=== PATIENT | female | born 1980 | race Caucasian/White ===

== ENCOUNTER 2019-01-15 11:40 | Emergency (ER) | payer OTHER ==
[2019-01-15] MEDS ORDERED: ACETAMINOPHEN 325 MG TABLET PO ONE (12:20)
--- NOTE | 2019-01-15 12:23 | ER Document Report ---
ED Medical Screen (RME) - General Chief Complaint: Passed Out Prior to Arrival Stated Complaint: POSSIBLE SYNCOPE Time Seen by Provider: 01/15/19 12:14 Mode of Arrival: Ambulatory Information source: Patient TRAVEL OUTSIDE OF THE [place] IN LAST 30 DAYS: No - HPI Patient complains to provider of: syncope Notes: 01/15/19 12:21 Patient is here with complaints of syncopal episode. The patient states she woke up feeling fine this morning. She was at work and started feeling like she was going to pass out. She apparently had a brief syncopal episode. She states that her coworkers said that she seemed to have full body shaking during this episode. Patient states when she woke up she was out of it and groggy for several minutes. She denies any loss of bowel or bladder. She denies any history of seizures. No chest pain or shortness of breath. She now complains of left-sided headache. She states that she was having some blurred vision in her left eye, this seems to be better. She denies any unilateral numbness, tingling, weakness. No fever. No injury. She does smoke marijuana. She denies any other specific complaints at this time. Exam Nontoxic, no distress. Lungs clear and equal. Heart sounds normal. Nonfocal neurological exam. Plan CBC, CMP, troponin, EKG, chest x-ray, head CT, Tylenol. An initial examination was made on the patient as part of the triage process, and it was determined a more comprehensive evaluation was necessary. Initial labs were ordered and patient was transferred to another provider in the ED who assumed care and finished evaluation and plan. - Related Data Allergies/Adverse Reactions: No Known Allergies Allergy (Verified 01/15/19 11:42) Past Medical History - Social History Chew tobacco use (# tins/day): No Frequency of alcohol use: Social Drug Abuse: Marijuana Renal/ Medical History: Denies: Hx Peritoneal Dialysis Physical Exam - Vital signs Vitals: Temp Pulse Resp BP Pulse Ox 97.5 F 74 14 119/69 99 01/15/19 11:47 01/15/19 11:47 01/15/19 11:47 01/15/19 11:47 01/15/19 11:47 Course - Vital Signs Vital signs: Temp Pulse Resp BP Pulse Ox 97.5 F 74 14 119/69 99 01/15/19 11:47 01/15/19 11:47 01/15/19 11:47 01/15/19 11:47 01/15/19 11:47
--- NOTE | 2019-01-15 12:47 | RADIOLOGY REPORT (SQ) ---
EXAM DESCRIPTION: CHEST 2 VIEWS COMPLETED DATE/TIME: 01/15/2019 12:35 pm REASON FOR STUDY: syncope COMPARISON: None. EXAM PARAMETERS: NUMBER OF VIEWS: two views TECHNIQUE: Digital Frontal and Lateral radiographic views of the chest acquired. RADIATION DOSE: NA LIMITATIONS: none FINDINGS: LUNGS AND PLEURA: No opacities, masses or pneumothorax. No pleural effusion. MEDIASTINUM AND HILAR STRUCTURES: No masses or contour abnormalities. HEART AND VASCULAR STRUCTURES: Heart normal size. No evidence for failure. BONES: Old healed right lateral rib fractures HARDWARE: None in the chest. OTHER: No other significant finding. IMPRESSION: NO ACUTE RADIOGRAPHIC FINDING IN THE CHEST. TECHNICAL DOCUMENTATION: JOB ID: [id number] [employer]- All Rights Reserved Reading location - IP/workstation name: [email or web address]
--- NOTE | 2019-01-15 13:00 | RADIOLOGY REPORT (SQ) ---
EXAM DESCRIPTION: CT HEAD WITHOUT COMPLETED DATE/TIME: 01/15/2019 12:44 pm REASON FOR STUDY: syncope, ? seizure, blurred vision, headache COMPARISON: None. TECHNIQUE: Axial images acquired through the brain without intravenous contrast. Images reviewed wi th bone, brain and subdural windows. Additional sagittal and coronal reconstructions were generated. Images stored on PACS. All CT scanners at this facility use dose modulation, iterative reconstruction, and/or weight based d osing when appropriate to reduce radiation dose to as low as reasonably achievable (ALARA). [facility]: Dose Right [facility]: CareDose [facility]: Dose Right [facility]: Teradose 4D [facility]: Perception Software RADIATION DOSE: CT Rad equipment meets quality standard of care and radiation dose reduction techniq ues were employed. CTDIvol: 53.2 mGy. DLP: 1070 mGy-cm. mGy. LIMITATIONS: None. FINDINGS: VENTRICLES: Normal size and contour. CEREBRUM: No masses. No hemorrhage. No midline shift. No evidence for acute infarction. Normal gra y/white matter differentiation. No areas of low density in the white matter. CEREBELLUM: There is a questionable low-density lesion seen in the salvatore on sagittal imaging. No defi nitive mass effect. EXTRAAXIAL SPACES: No fluid collections. No masses. ORBITS AND GLOBE: No intra- or extraconal masses. Normal contour of globe without masses. CALVARIUM: No fracture. PARANASAL SINUSES: No fluid or mucosal thickening. SOFT TISSUES: No mass or hematoma. OTHER: No other significant finding. IMPRESSION: Questionable low-density lesion/mass in the salvatore. EVIDENCE OF ACUTE STROKE: NO. COMMENT: Recommend MRI with contrast for further evaluation. Quality ID # [id number]: Final reports with documentation of one or more dose reduction techniques (e.g., Au tomated exposure control, adjustment of the mA and/or kV according to patient size, use of iterative reconstruction technique) TECHNICAL DOCUMENTATION: JOB ID: [id number] [employer]- All Rights Reserved Reading location - IP/workstation name: [email or web address]
[2019-01-15 13:38] LABS: ABSOLUTE LYMPHOCYTES (AUTO) 2.3 10^3/uL (0.5-4.7); ABSOLUTE MONOCYTES (AUTO) 0.7 10^3/uL (0.1-1.4); ABSOLUTE NEUT (AUTO) 8.4 10^3/uL (1.7-8.2); BASOPHILS % (AUTO) 0.4 % (0-2); HEMATOCRIT 41.4 % (36.0-47.0); HEMOGLOBIN 14.5 g/dL (12.0-15.5); LYMPHOCYTES % (AUTO) 20.4 % (13-45); MEAN CORPUSCULAR HEMOGLOBIN 34.4 pg (27.0-33.4); MEAN CORPUSCULAR VOLUME 99 fl (80-97); MONOCYTES % (AUTO) 5.9 % (3-13); PLATELET COUNT 345 10^3/uL (150-450); RED BLOOD COUNT 4.21 10^6/uL (3.72-5.28); RED CELL DISTRIBUTION WIDTH 12.8 % (11.5-14.0); SEGMENTED NEUTROPHILS % (AUTO) 73.3 % (42-78); TOTAL CELLS COUNTED % (AUTO) 100 %; WHITE BLOOD COUNT 11.4 10^3/uL (4.0-10.5)
[2019-01-15 13:47] LABS: APPEARANCE,URINE CLEAR; BILIRUBIN,URINE NEGATIVE (NEGATIVE); COLOR,URINE YELLOW; GLUCOSE, URINE NEGATIVE (NEGATIVE); KETONES,URINE NEGATIVE (NEGATIVE); LEUKOCYTE ESTERASE,URINE NEGATIVE (NEGATIVE); NITRITE,URINE NEGATIVE (NEGATIVE); PROTEIN,URINE NEGATIVE (NEGATIVE); UROBILINOGEN,URINE NEGATIVE mg/dL (<2.0)
[2019-01-15 13:58] LABS: ALANINE AMINOTRANSFERASE 22 U/L (9-52); ALBUMIN 4.6 g/dL (3.5-5.0); ALKALINE PHOSPHATASE 69 U/L (38-126); ANION GAP 11 (5-19); ASPARTATE AMINO TRANSFERASE 20 U/L (14-36); BILIRUBIN,DIRECT 0.3 mg/dL (0.0-0.4); BILIRUBIN,TOTAL 0.4 mg/dL (0.2-1.3); BLOOD UREA NITROGEN 15 mg/dL (7-20); CALCIUM 9.8 mg/dL (8.4-10.2); CARBON DIOXIDE 25 mmol/L (22-30); CHLORIDE 101 mmol/L (98-107); GLUCOSE 88 mg/dL (75-110); POTASSIUM 4.6 mmol/L (3.6-5.0); SODIUM 136.9 mmol/L (137-145); TOTAL PROTEIN 7.7 g/dL (6.3-8.2)
[2019-01-15] MEDS ORDERED: THIAMINE HCL 100 MG, FOLIC ACID 1 MG in NORMAL SALINE 250 ML IV ONE (15:08)
--- NOTE | 2019-01-15 15:17 | ER Document Report ---
ED General - General Chief Complaint: Passed Out Prior to Arrival Stated Complaint: POSSIBLE SYNCOPE Time Seen by Provider: 01/15/19 12:14 Mode of Arrival: Ambulatory TRAVEL OUTSIDE OF THE [place] IN LAST 30 DAYS: No - HPI Notes: Patient is a 38-year-old female that presents to the emergency department for chief complaint of vision changes and seizure. Patient reports when she woke up this morning she was having hard time seeing out of her left eye. If she would close her left eye her vision normalized. She described it as a blurry brightness. The blurred vision lasted for about an hour or 2 and has since resolved. Patient states she went to work afterwards and was "just not feeling well". She states she sat down on a bench and then had a seizure. She does not remember the seizure or any prodromal symptoms. Her boss found her and reported that she had facial twitching as well as shaking of her upper and lower extremities. It is unknown how long the seizure-like activity lasted. When patient woke up she was groggy but felt like she knew where she was. She states her mother has a history of seizures but she has never had a seizure. She does report a mild headache behind her left eye that has been ongoing throughout today. The headache was gradual in onset and is currently improved. She has not taken any medication at home for her headache yet today. Patient denies any numbness or weakness. She states she is now feeling much better. Past Medical History: Negative Past Surgical History: Tonsillectomy, chest tube Social History: Drinks at least 6 beers daily, daily tobacco, daily marijuana Family History: Reviewed and noncontributory for presenting illness Allergies: Reviewed, see documented allergy list. REVIEW OF SYSTEMS: CONSTITUTIONAL : No fever No chills No diaphoresis No recent illness EENT: vision changes No congestion No sore throat CARDIOVASCULAR: No chest pain No palpitations RESPIRATORY: No shortness of breath No cough No difficulty breathing GASTROINTESTINAL: No abdominal pain No nausea No vomiting No diarrhea GENITOURINARY: No dysuria No hematuria No difficulty urinating MUSCULOSKELETAL: No back pain No leg pain No arm pain SKIN: No rashes No lesions LYMPHATIC: No swollen, enlarged glands. NEUROLOGICAL: No lightheadedness Seizure headache No weakness No paresthesias PSYCHIATRIC: No anxiety No depression PHYSICAL EXAMINATION: Vital signs reviewed, nursing noted reviewed. GENERAL: Well-appearing, well-nourished and in no acute distress. HEAD: Atraumatic, normocephalic. EYES: Eyes appear normal, extraocular movements intact, sclera anicteric, conjunctiva are normal. ENT: nares patent, oropharynx clear without exudates. Moist mucous membranes. NECK: Normal range of motion, supple without lymphadenopathy LUNGS: Breath sounds clear to auscultation bilaterally and equal. No wheezes rales or rhonchi. HEART: Regular rate and rhythm without murmurs ABDOMEN: Soft, nontender, normoactive bowel sounds. No rebound, guarding, or rigidity. No masses appreciated. EXTREMITIES: Nontender, good range of motion, no pitting or edema. NEUROLOGICAL: No focal neurological deficits. Moves all extremities spontaneously Motor and sensory grossly intact on exam. PSYCH: Normal mood, normal affect. SKIN: Warm, Dry, normal turgor, no rashes or lesions noted on exposed skin - Related Data Allergies/Adverse Reactions: No Known Allergies Allergy (Verified 01/15/19 11:42) Past Medical History - General Information source: Patient - Social History Smoking Status: Current Every Day Smoker Chew tobacco use (# tins/day): No Frequency of alcohol use: Social Drug Abuse: Marijuana Family History: Other - Mother has seizures Patient has suicidal ideation: No Patient has homicidal ideation: No Renal/ Medical History: Denies: Hx Peritoneal Dialysis Physical Exam - Vital signs Vitals: Temp Pulse Resp BP Pulse Ox 97.5 F 74 14 119/69 99 01/15/19 11:47 01/15/19 11:47 01/15/19 11:47 01/15/19 11:47 01/15/19 11:47 Course - Re-evaluation Re-evalutation: 01/15/19 15:16 Vitals reviewed. Nursing notes reviewed. Patient is currently hemodynamically stable with no focal neurologic deficits. Seizure precautions were started. Patient has unremarkable blood work including normal electrolytes and renal function. She has no signs of anemia. Patient's EKG shows no acute ischemic changes. Her CT brain shows a density or mass in her salvatore which is new for this patient and possibly the source of her seizure activity. I have paged neurosurgery at [facility] and am currently awaiting a callback. Laboratory 01/15/19 01/15/19 01/15/19 13:17 13:17 13:17 WBC 11.4 H RBC 4.21 Hgb 14.5 Hct 41.4 MCV 99 H MCH 34.4 H MCHC 35.0 RDW 12.8 Plt Count 345 Seg Neutrophils % 73.3 Lymphocytes % 20.4 Monocytes % 5.9 Eosinophils % 0.0 Basophils % 0.4 Absolute Neutrophils 8.4 H Absolute Lymphocytes 2.3 Absolute Monocytes 0.7 Absolute Eosinophils 0.0 Absolute Basophils 0.0 Sodium 136.9 L Potassium 4.6 Chloride 101 Carbon Dioxide 25 Anion Gap 11 BUN 15 Creatinine 0.66 Est GFR ( Amer) > 60 Est GFR (Non-Af Amer) > 60 Glucose 88 Calcium 9.8 Total Bilirubin 0.4 Direct Bilirubin 0.3 Neonat Total Bilirubin Not Reportable Neonat Direct Bilirubin Not Reportable Neonat Indirect Bili Not Reportable AST 20 ALT 22 Alkaline Phosphatase 69 Troponin I < 0.012 Total Protein 7.7 Albumin 4.6 Urine Color Urine Appearance Urine pH Ur Specific [place] Urine Protein Urine Glucose (UA) Urine Ketones Urine Blood Urine Nitrite Urine Bilirubin Urine Urobilinogen Ur Leukocyte Esterase Urine WBC (Auto) Urine RBC (Auto) Squamous Epi Cells Auto Urine Mucus (Auto) Urine Ascorbic Acid Urine HCG, Qual 01/15/19 13:17 WBC RBC Hgb Hct MCV MCH MCHC RDW Plt Count Seg Neutrophils % Lymphocytes % Monocytes % Eosinophils % Basophils % Absolute Neutrophils Absolute Lymphocytes Absolute Monocytes Absolute Eosinophils Absolute Basophils Sodium Potassium Chloride Carbon Dioxide Anion Gap BUN Creatinine Est GFR ( Amer) Est GFR (Non-Af Amer) Glucose Calcium Total Bilirubin Direct Bilirubin Neonat Total Bilirubin Neonat Direct Bilirubin Neonat Indirect Bili AST ALT Alkaline Phosphatase Troponin I Total Protein Albumin Urine Color YELLOW Urine Appearance CLEAR Urine pH 5.0 Ur Specific [place] 1.010 Urine Protein NEGATIVE Urine Glucose (UA) NEGATIVE Urine Ketones NEGATIVE Urine Blood NEGATIVE Urine Nitrite NEGATIVE Urine Bilirubin NEGATIVE Urine Urobilinogen NEGATIVE Ur Leukocyte Esterase NEGATIVE Urine WBC (Auto) 0 Urine RBC (Auto) 0 Squamous Epi Cells Auto <1 Urine Mucus (Auto) RARE Urine Ascorbic Acid NEGATIVE Urine HCG, Qual NEGATIVE Chest X-Ray 01/15/19 12:20 IMPRESSION: NO ACUTE RADIOGRAPHIC FINDING IN THE CHEST. Head CT 01/15/19 12:20 IMPRESSION: Questionable low-density lesion/mass in the salvatore. EVIDENCE OF ACUTE STROKE: NO. 01/15/19 16:04 Patient care was discussed with Dr. Teddy Wilson at [facility], neurosurgery. He did review patient's CT images and feel she needs further imaging to confirm lesion in her salvatore. He recommends admission to the hospital and states he would see the patient in consult but will not accept her onto his service. At this time I have paged neurology to further discuss patient's care. 01/15/19 16:23 Patient's care was discussed with Dr. Moses, neurology, at [facility]. She also reviewed patient's CT images and sees the area in question however she does recommend EEG, inpatient evaluation and MRI. She accepts patient for transfer and admission to her service. Patient is in agreement with plan of care and currently stable for transfer. - Vital Signs Vital signs: Temp Pulse Resp BP Pulse Ox 97.5 F 74 14 119/69 99 01/15/19 11:47 01/15/19 11:47 01/15/19 11:47 01/15/19 11:47 01/15/19 15:03 - Laboratory Result Diagrams: 01/15/19 13:17 01/15/19 13:17 Laboratory results interpreted by me: 01/15/19 01/15/19 13:17 13:17 WBC 11.4 H MCV 99 H MCH 34.4 H Absolute Neutrophils 8.4 H Sodium 136.9 L - EKG Interpretation by Me Additional EKG results interpreted by me: 01/15/19 15:15 Interpreted by myself 09/30/2008: Normal sinus rhythm, rate 75,, no ectopy, no STEMI, good R wave progression Discharge - Discharge Clinical Impression: Lesion of salvatore, Seizure-like activity Condition: Stable Disposition: [facility]
--- NOTE | 2019-01-15 15:24 | EKG REPORT ---
SEVERITY:- ABNORMAL ECG - SINUS RHYTHM ABNORMAL Q SUGGESTS ANTERIOR INFARCT, CLINICAL CORRELATION NEEDED. : Confirmed by: Madhu Barnes MD 15-Jan-2019 15:23:59
[2019-01-15] MEDS ORDERED: NICOTINE 14 MG/24 HR PATCH.TD24 TD ONE (17:35)
[2019-01-15 20:01] VITALS: BP 113/70
== END 2019-01-15 19:55 | disposition short-term general hospital (02) ==
LOC: ER 11:40
DX: G93.9 Disorder of brain, unspecified (principal); H53.8 Other visual disturbances; R25.3 Fasciculation; R51 Headache; F17.200 Nicotine dependence, unspecified, uncomplicated; F12.10 Cannabis abuse, uncomplicated
CPT/HCPCS: 93005; 99285; 96365; 36415; 80307; 85025; 81025; 80053; 81001; 84484; 71046; 70450; 93010; J3490; J3411; J7050